=== PATIENT | female | born 1950 | race Caucasian/White ===

== ENCOUNTER 2016-11-05 11:45 | Emergency (ER) | payer MEDICARE, OTHER ==
[2016-11-05] MEDS ORDERED: MECLIZINE 12.5 MG TAB PO STA (12:20)
[2016-11-05] MEDS ORDERED: SODIUM CHLORIDE 0.9% 500 ML IV STA (12:20)
[2016-11-05] MEDS ORDERED: ONDANSETRON 4 MG/2 ML VIAL IVP STA (12:20)
[2016-11-05] MEDS ORDERED: DIAZEPAM 5 MG/ML 2 ML SYRINGE IVP STA (12:20)
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
[2016-11-05 13:06] LABS: Basophils % (A) 0 %; CH 27.5; CHCM 32.6; Eosinophils # (A) 0.3 k/uL (0-0.7); Eosinophils % (A) 4 %; HCT 35.7 % (34.0-46.0); HDW 2.61; HGB 11.6 gm/dL (11.4-16.0); Luc # (Auto) 0.13; Luc % (Auto) 2; Lymphocytes # (A) 2.7 k/uL (1.0-4.8); Lymphocytes % (A) 34 %; MCH 27.5 pg (25.0-35.0); MCHC 32.5 g/dL (31.0-37.0); MCV 84.7 fL (80.0-100.0); Mean Platelet Volume 8.9; Monocytes # (A) 0.4 k/uL (0-1.0); Monocytes % (A) 5 %; Neutrophils # (A) 4.3 k/uL (1.3-7.7); Neutrophils % (A) 55 %; RBC 4.21 m/uL (3.80-5.40); RDW 13.7 % (11.5-15.5); WBC 7.8 k/uL (3.8-10.6); WBC (Perox) 7.97
[2016-11-05 13:11] LABS: ALT 34 U/L (9-52); AST 25 U/L (14-36); Alkaline Phosphatase 75 U/L (38-126); Anion Gap 9 mmol/L; Blood Urea Nitrogen 17 mg/dL (7-17); Calcium 9.7 mg/dL (8.4-10.2); Carbon Dioxide 24 mmol/L (22-30); Chloride 108 mmol/L (98-107); Glucose 106 mg/dL (74-99); Non-African American GFR(MDRD) >60 (>60 ml/min/1.73 sqM); Potassium 4.5 mmol/L (3.5-5.1); Sodium 141 mmol/L (137-145); Total Bilirubin 0.6 mg/dL (0.2-1.3); Total Protein 6.4 g/dL (6.3-8.2)
--- NOTE | 2016-11-05 13:35 | XR ---
Cervical spine HISTORY: Neck pain 5 views of the cervical spine and 6 images correlated to prior exam 04/29/2012 No interval change is evident. There is stable height and alignment, bone mineralization of the cervi kailyn vertebral bodies. Prevertebral soft tissues and disc spaces show a similar appearance, loss of di sc height at C5-6 with associated spondylosis. Multilevel facet arthropathy is noted. Carotid artery calcifications are present. There are overlying cardiac leads. Oblique images are limited for evaluat ion of neural foramina. C7 and T1 not well seen. IMPRESSION: Degenerative disc disease. Cervical MRI likely would be of benefit. Limitations as descri bed.
[2016-11-05 13:53] LABS: Appearance,Urine Clear (Clear); Bacteria,Urine Rare /hpf; Bilirubin,Urine Negative (Negative); Glucose,Urine (UA) Negative (Negative); Ketones,Urine Negative (Negative); Leukocyte Esterase,Urine Moderate (Negative); Mucus,Urine Rare /hpf; Nitrite,Urine Positive (Negative); PH, Urine 5.5 (5.0-8.0); Particle Count 17653; Protein,Urine Negative (Negative); RBC,Urine <1 /hpf (0-5); Specific Gravity,Urine 1.003 (1.001-1.035); UA Billing (MACRO vs. MICRO) MICRO; Urobilinogen,Urine <2.0 mg/dL (<2.0); WBC,Urine 15 /hpf (0-5)
[2016-11-05 14:21] VITALS: BP 160/74; PULSE 58; RESP 18; TEMP 98.5
== END 2016-11-05 14:28 | disposition home or self-care (01) ==
LOC: EC 11:45
DX: M47.812 Spondylosis without myelopathy or radiculopathy, cervical region (principal); N39.0 Urinary tract infection, site not specified; R51 Headache; R42 Dizziness and giddiness; I25.10 Atherosclerotic heart disease of native coronary artery without angina pectoris; E11.9 Type 2 diabetes mellitus without complications; I10 Essential (primary) hypertension; Z79.82 Long term (current) use of aspirin; Z79.4 Long term (current) use of insulin; Z79.899 Other long term (current) drug therapy; Z91.048 Other nonmedicinal substance allergy status; Z88.0 Allergy status to penicillin
CPT/HCPCS: 36415; 93005; 80053; 84484; 85025; 81001; 72050; 99284; 96374; 96375; 96361 ×2; J3360; J2405

== ENCOUNTER → 2017-02-02 | Outpatient (CLI) | payer MEDICARE, OTHER ==
--- NOTE | 2017-02-02 12:07 | MR ---
MR brain without contrast HISTORY: F03.90, dementia Correlation to CT brain dated 04/09/2012 Multiplanar multisequence imaging through the brain The corpus callosum, cervical medullary junction, cerebellopontine angles are within normal limits. T here is a partially empty sella. Increased signal present along the temporal bone, petrous apex on the right is noted. There are katelyn l vascular flow voids. Cystic focus present within the inferior aspect of the medial portion of the l eft cerebellar hemisphere may represent a arachnoid cyst. This cyst measures 2 cm in diameter. Perive ntricular and subcortical confluent and scattered hyperintensities are present on inversion recovery and T2-weighted sequences bilaterally within the deep white matter. There is no hemorrhage or hydroce phalus evident. Mild cortical atrophy is likely age-related. There is no restricted diffusion. The or bits show symmetric appearance. 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 IMPRESSION: Age-related atrophy and probable chronic small vessel ischemia. Correlate for mastoiditis , petrous apicitis. Temporal bone CT may be of benefit.
== END ==
LOC: RADMRIMAIN 08:16
PROVIDERS: ATTEND Family Medicine
DX: G31.1 Senile degeneration of brain, not elsewhere classified (principal)
CPT/HCPCS: 70551

== ENCOUNTER 2017-08-22 00:56 | Observation (INO) | payer MEDICARE, OTHER ==
[2017-08-22 01:43] LABS: Basophils % (A) 0 %; Eosinophils # (A) 0.3 k/uL (0-0.7); Eosinophils % (A) 3 %; HCT 34.2 % (34.0-46.0); HGB 11.2 gm/dL (11.4-16.0); Lymphocytes # (A) 3.7 k/uL (1.0-4.8); Lymphocytes % (A) 42 %; MCH 25.7 pg (25.0-35.0); MCHC 32.7 g/dL (31.0-37.0); MCV 78.5 fL (80.0-100.0); Mean Platelet Volume 8.4; Monocytes # (A) 0.4 k/uL (0-1.0); Monocytes % (A) 5 %; Neutrophils # (A) 4.2 k/uL (1.3-7.7); Neutrophils % (A) 48 %; Platelet Count 242 k/uL (150-450); RBC 4.35 m/uL (3.80-5.40); RDW 14.5 % (11.5-15.5); WBC 8.9 k/uL (3.8-10.6)
[2017-08-22 01:52] LABS: Partial Thromboplastin Time 23.8 sec (22.0-30.0); Prothrombin Time 9.8 sec (9.0-12.0)
--- NOTE | 2017-08-22 01:52 | ED ---
General Adult HPI - General Chief complaint: Chest Pain Stated complaint: CHEST PAIN Time Seen by Provider: 08/22/17 01:35 Source: patient, RN notes reviewed Mode of arrival: wheelchair Limitations: no limitations - History of Present Illness Initial comments: Patient is a pleasant 67-year-old female presenting to the emergency Department with chest discomfort. Onset of symptoms was around 11:00. Patient has tightness in her chest. Patient took her home medications and states discomfort is now mild. No radiation of pain. Patient does have some associated dyspnea, nausea, and sweating. Patient did have similar symptoms around 6 months ago with a heart catheterization and told there was one area with 100% blockage. Patient did have a headache yesterday and today. Patient states headaches are chronic and unchanged. Patient has had previous MRI for headaches. Headache at this time secondary to her resolved with 2 Motrin. - Related Data Home Medications Medication Instructions Recorded Confirmed Insulin Aspart [NovoLOG 6 unit SQ TID-W/MEALS 06/01/14 03/01/17 (formulary)] Insulin Detemir [Levemir] 30 unit SQ HS 06/01/14 03/01/17 metFORMIN HCL 1,000 mg PO BID 06/01/14 03/01/17 amLODIPine BESYLATE/BENAZEPRIL 1 cap PO DAILY 11/05/16 03/01/17 [Lotrel 5-40 mg Capsule] Aspirin EC [Ecotrin Low Dose] 81 mg PO DAILY 03/01/17 03/01/17 Atenolol [Tenormin] 25 mg PO HS 03/01/17 03/01/17 Calcium Carbonate/Vitamin D3 1 tab PO BID 03/01/17 03/01/17 [Calcium 600-Vit D3 200 Tablet] Cyanocobalamin (Vitamin B-12) 5,000 mcg SL DAILY 03/01/17 03/01/17 [Vitamin B12] [place]-3 Fatty Acids/Fish Oil [Fish 1 cap PO DAILY 03/01/17 03/01/17 Oil 1,000 mg Softgel] Pantoprazole [Protonix] 40 mg PO HS 03/01/17 03/01/17 Sulfamethox-Tmp 800-160Mg [Bactrim 1 tab PO BID 03/01/17 03/01/17 DS 800-160 mg] Previous Rx's Medication Instructions Recorded Atorvastatin [Lipitor] 20 mg PO HS #30 tab 03/03/17 Isosorbide Mononitrate ER [Imdur] 30 mg PO DAILY #30 tab.er.24h 03/03/17 Lisinopril [Zestril] 20 mg PO DAILY #30 tab 03/03/17 Propylene Glycol/Peg 400 [Systane 1 drop BOTH EYES Q4-6H PRN #10 ml 03/03/17 Ultra 0.4-0.3% Eye Drp] Allergies Allergy/AdvReac Type Severity Reaction Status Date / Time Penicillins Allergy Rash/Hives Verified 08/22/17 01:05 adhesive AdvReac Rash/Hives Verified 08/22/17 01:05 Review of Systems ROS Statement: Those systems with pertinent positive or pertinent negative responses have been documented in the HPI. ROS Other: All systems not noted in ROS Statement are negative. Constitutional: Denies: fever Eyes: Denies: eye pain ENT: Denies: ear pain Respiratory: Denies: cough Cardiovascular: Reports: chest pain Endocrine: Reports: fatigue Gastrointestinal: Reports: nausea. Denies: abdominal pain Genitourinary: Denies: dysuria Musculoskeletal: Denies: back pain Skin: Denies: rash Neurological: Reports: headache. Denies: weakness, confusion Past Medical History Past Medical History: Coronary Artery Disease (CAD), Diabetes Mellitus, Hyperlipidemia, Hypertension, Osteoarthritis (OA) Additional Past Medical History / Comment(s): kidney stones, past episode of fast heart stated" they gave me a shot and it slowed down and i never had that problem again", back pain, takes fish oil for cholesterol.UTI'S, "FREQ BOUTS OF NAUSEA WHEN EATING-ESPECIALLY AT BREAKFAST" History of Any Multi-Drug Resistant Organisms: ESBL Date of last positivie culture/infection: 04/21/17- ESBL Klebsiella MDRO Source:: Urine Past Surgical History: Hysterectomy Additional Past Surgical History / Comment(s): cataracts, renal calculi Past Anesthesia/Blood Transfusion Reactions: No Reported Reaction Past Psychological History: No Psychological Hx Reported Smoking Status: Never smoker Past Alcohol Use History: None Reported Past Drug Use History: None Reported - Past Family History Mother Family Medical History: Diabetes Mellitus, Hypertension Additional Family Medical History / Comment(s): mom is still alive Father Family Medical History: CVA/TIA, Myocardial Infarction ([place]) Additional Family Medical History / Comment(s): when he was 76 General Exam Limitations: no limitations General appearance: alert, in no apparent distress Head exam: Present: atraumatic, normocephalic Eye exam: Present: normal appearance, PERRL, EOMI. Absent: nystagmus ENT exam: Present: normal oropharynx Neck exam: Present: normal inspection Respiratory exam: Present: normal lung sounds bilaterally. Absent: chest wall tenderness Cardiovascular Exam: Present: regular rate, normal rhythm Expanded Peripheral pulses: 2+: Radial (R), Radial (L), Dorsalis Pedis (R), Dorsalis Pedis (L) GI/Abdominal exam: Present: soft. Absent: tenderness Extremities exam: Present: normal inspection. Absent: pedal edema, calf tenderness Neurological exam: Present: alert, CN II-XII intact. Absent: motor sensory deficit Expanded Neurological exam: Present: protecting the airway Speech: Present: fluid speech Cranial nerves: EOM's Intact: Normal Sensory exam: Upper Extremity Light Touch: Normal, Lower Extremity Light Touch: Normal Motor strength exam: RUE: 5, LUE: 5, RLE: 5, LLE: 5 Eye Response: (4) open spontaneously Motor Response: (6) obeys commands Verbal Response: (5) oriented Psychiatric exam: Present: normal affect, normal mood Skin exam: Present: normal color Course Vital Signs 08/22/17 01:00 Temperature 98.8 F Pulse Rate 65 Respiratory 18 Rate Blood Pressure 212/93 O2 Sat by Pulse 98 Oximetry EKG Findings - EKG Comments: EKG Findings:: Sinus rhythm at 65. FL 198. QRS 92. QT 414. QTC 4:30. Left axis. Q wave in aVF. No acute ST change. Medical Decision Making - Medical Decision Making Patient reevaluated and resting comfortably in bed. Patient updated on results and plan. Case was discussed with practitioner Parul dwyer, who will admit for Dr. Rocha, covering for Dr. Hernandez. - Lab Data Result diagrams: 08/22/17 01:20 08/22/17 01:20 Lab Results 08/22/17 08/22/17 08/22/17 Range/Units 01:20 01:20 01:20 WBC 8.9 (3.8-10.6) k/uL RBC 4.35 (3.80-5.40) m/uL Hgb 11.2 L (11.4-16.0) gm/dL Hct 34.2 (34.0-46.0) % MCV 78.5 L (80.0-100.0) fL MCH 25.7 (25.0-35.0) pg MCHC 32.7 (31.0-37.0) g/dL RDW 14.5 (11.5-15.5) % Plt Count 242 (150-450) k/uL Neutrophils % 48 % Lymphocytes % 42 % Monocytes % 5 % Eosinophils % 3 % Basophils % 0 % Neutrophils # 4.2 (1.3-7.7) k/uL Lymphocytes # 3.7 (1.0-4.8) k/uL Monocytes # 0.4 (0-1.0) k/uL Eosinophils # 0.3 (0-0.7) k/uL Basophils # 0.0 (0-0.2) k/uL PT (9.0-12.0) sec INR (<1.2) APTT (22.0-30.0) sec Sodium 142 (137-145) mmol/L Potassium 4.7 (3.5-5.1) mmol/L Chloride 101 (98-107) mmol/L Carbon Dioxide 25 (22-30) mmol/L Anion Gap 16 mmol/L BUN 19 H (7-17) mg/dL Creatinine 0.60 (0.52-1.04) mg/dL Est GFR (CKD-EPI)AfAm >90 (>60 ml/min/1.73 sqM) Est GFR (CKD-EPI)NonAf >90 (>60 ml/min/1.73 sqM) Glucose 161 H (74-99) mg/dL Calcium 10.1 (8.4-10.2) mg/dL Magnesium 1.8 (1.6-2.3) mg/dL Total Bilirubin 0.4 (0.2-1.3) mg/dL AST 18 (14-36) U/L ALT 18 (9-52) U/L Alkaline Phosphatase 120 (38-126) U/L Total Creatine Kinase 46 (30-135) U/L CK-MB (CK-2) 0.6 (0.0-2.4) ng/mL CK-MB (CK-2) Rel Index 1.3 Troponin I <0.012 (0.000-0.034) ng/mL Total Protein 7.2 (6.3-8.2) g/dL Albumin 4.4 (3.5-5.0) g/dL 08/22/17 Range/Units 01:20 WBC (3.8-10.6) k/uL RBC (3.80-5.40) m/uL Hgb (11.4-16.0) gm/dL Hct (34.0-46.0) % MCV (80.0-100.0) fL MCH (25.0-35.0) pg MCHC (31.0-37.0) g/dL RDW (11.5-15.5) % Plt Count (150-450) k/uL Neutrophils % % Lymphocytes % % Monocytes % % Eosinophils % % Basophils % % Neutrophils # (1.3-7.7) k/uL Lymphocytes # (1.0-4.8) k/uL Monocytes # (0-1.0) k/uL Eosinophils # (0-0.7) k/uL Basophils # (0-0.2) k/uL PT 9.8 (9.0-12.0) sec INR 1.0 (<1.2) APTT 23.8 (22.0-30.0) sec Sodium (137-145) mmol/L Potassium (3.5-5.1) mmol/L Chloride (98-107) mmol/L Carbon Dioxide (22-30) mmol/L Anion Gap mmol/L BUN (7-17) mg/dL Creatinine (0.52-1.04) mg/dL Est GFR (CKD-EPI)AfAm (>60 ml/min/1.73 sqM) Est GFR (CKD-EPI)NonAf (>60 ml/min/1.73 sqM) Glucose (74-99) mg/dL Calcium (8.4-10.2) mg/dL Magnesium (1.6-2.3) mg/dL Total Bilirubin (0.2-1.3) mg/dL AST (14-36) U/L ALT (9-52) U/L Alkaline Phosphatase (38-126) U/L Total Creatine Kinase (30-135) U/L CK-MB (CK-2) (0.0-2.4) ng/mL CK-MB (CK-2) Rel Index Troponin I (0.000-0.034) ng/mL Total Protein (6.3-8.2) g/dL Albumin (3.5-5.0) g/dL - Radiology Data Radiology results: image reviewed (Chest x-ray shows no acute process) Disposition Clinical Impression: Chest pain Disposition: ADMITTED IP TO THIS [facility] Referrals: Colette Hernandez DO [Primary Care Provider] - 1-2 days Decision Time: 03:15
[2017-08-22 01:54] LABS: ALT 18 U/L (9-52); AST 18 U/L (14-36); Albumin 4.4 g/dL (3.5-5.0); Alkaline Phosphatase 120 U/L (38-126); Anion Gap 16 mmol/L; Blood Urea Nitrogen 19 mg/dL (7-17); Calcium 10.1 mg/dL (8.4-10.2); Carbon Dioxide 25 mmol/L (22-30); Chloride 101 mmol/L (98-107); Glucose 161 mg/dL (74-99); Magnesium 1.8 mg/dL (1.6-2.3); Potassium 4.7 mmol/L (3.5-5.1); Sodium 142 mmol/L (137-145); Total Bilirubin 0.4 mg/dL (0.2-1.3); Total Protein 7.2 g/dL (6.3-8.2)
--- NOTE | 2017-08-22 02:06 | XR ---
EXAMINATION TYPE: XR chest 2V DATE OF EXAM: 08/22/2017 COMPARISON: 03/01/2017 HISTORY: Chest pain TECHNIQUE: Frontal and lateral views of the chest are obtained. FINDINGS: Heart and mediastinum are within normal limits. Lungs are clear. There is no heart failure . Bony thorax is intact. IMPRESSION: No active cardiopulmonary disease. There is improved inspiration compared to old exam.
[2017-08-22 02:07] LABS: Creatine Kinase 46 U/L (30-135)
[2017-08-22 02:20] LABS: Creatine Kinase MB 0.6 ng/mL (0.0-2.4); Troponin I <0.012 ng/mL (0.000-0.034)
[2017-08-22] MEDS ORDERED: ASPIRIN 81 MG PO STA (03:15)
[2017-08-22] MEDS ORDERED: NITROGLYCERIN SL TABS 0.4 MG TAB SUBLINGUAL PRN (03:15)
[2017-08-22 04:20] VITALS: RESP 16
[2017-08-22] MEDS ORDERED: NITROGLYCERIN OINT 1 INCH/GM PACKET TOPICAL SCH (06:00)
[2017-08-22 06:48] LABS: Glucose,Whole Blood 133 mg/dL (75-99)
[2017-08-22 07:00] VITALS: BMI 34.3
[2017-08-22 08:12] LABS: Creatine Kinase 35 U/L (30-135)
[2017-08-22 08:24] LABS: Creatine Kinase MB 0.4 ng/mL (0.0-2.4); Troponin I <0.012 ng/mL (0.000-0.034)
[2017-08-22] MEDS ORDERED: amLODIPine 10 MG TAB PO SCH (10:00)
--- NOTE | 2017-08-22 10:04 | P.CRDCN ---
History of Present Illness History of present illness: 67-year-old female who presented with chest discomfort with numbness in the left arm, shortness of breath dizziness pounding in the chest and elevated blood pressures upon admission Known coronary artery disease with a chronically occluded RCA as well as left circumflex, recent coronary angiogram by Dr. Russ medical treatment recommended the possibility of opening up the chronically occluded lesion for recurrent angina Blood pressure elevated upon admission Examination normal heart sounds are normal blood pressures in normal range now she is pain-free at this time to cardiac enzymes are normal ECG does not show any ST segment abnormalities Suggest Amlodipine 10 mg by mouth daily in the morning Benazepril or lisinopril 40 mg by mouth in the evening Stagger these medications and avoid combination antihypertensive therapy for this patient stop atenolol and start carvedilol 3.15 mg twice daily Serial cardiac enzymes Ambulate in the hallways and if she continues to have exertional chest discomfort then consider intervention on the chronically occluded vessel Continue Imdur I don't see statins on her medical regimen and I will start atorvastatin 40 mrem by mouth daily See full dictation by nurse practitioner Past Medical History Past Medical History: Coronary Artery Disease (CAD), Diabetes Mellitus, Hyperlipidemia, Hypertension, Osteoarthritis (OA) Additional Past Medical History / Comment(s): kidney stones, past episode of fast heart stated" they gave me a shot and it slowed down and i never had that problem again", back pain, takes fish oil for cholesterol.UTI'S, "FREQ BOUTS OF NAUSEA WHEN EATING-ESPECIALLY AT BREAKFAST" History of Any Multi-Drug Resistant Organisms: ESBL Date of last positivie culture/infection: 04/21/17- ESBL Klebsiella MDRO Source:: Urine Past Surgical History: Hysterectomy Additional Past Surgical History / Comment(s): cataracts, renal calculi Past Anesthesia/Blood Transfusion Reactions: No Reported Reaction Past Psychological History: No Psychological Hx Reported Smoking Status: Never smoker Past Alcohol Use History: None Reported Past Drug Use History: None Reported - Past Family History Mother Family Medical History: Diabetes Mellitus, Hypertension Additional Family Medical History / Comment(s): mom is still alive Father Family Medical History: CVA/TIA, Myocardial Infarction ([place]) Additional Family Medical History / Comment(s): when he was 76 Medications and Allergies Home Medications Medication Instructions Recorded Confirmed Type Insulin Aspart [NovoLOG 6 unit SQ TID-W/MEALS 06/01/14 08/22/17 History (formulary)] Insulin Detemir [Levemir] 30 unit SQ HS 06/01/14 08/22/17 History metFORMIN HCL 1,000 mg PO BID 06/01/14 08/22/17 History amLODIPine BESYLATE/BENAZEPRIL 1 cap PO DAILY 11/05/16 08/22/17 History [Lotrel 5-40 mg Capsule] Aspirin EC [Ecotrin Low Dose] 81 mg PO DAILY 03/01/17 08/22/17 History Atenolol [Tenormin] 25 mg PO HS 03/01/17 08/22/17 History Calcium Carbonate/Vitamin D3 1 tab PO BID 03/01/17 08/22/17 History [Calcium 600-Vit D3 200 Tablet] Cyanocobalamin (Vitamin B-12) 5,000 mcg SL DAILY 03/01/17 08/22/17 History [Vitamin B12] [place]-3 Fatty Acids/Fish Oil [Fish 1 cap PO DAILY 03/01/17 08/22/17 History Oil 1,000 mg Softgel] Pantoprazole [Protonix] 40 mg PO HS 03/01/17 08/22/17 History Cinnamon Bark [Cinnamon] 500 mg PO DAILY 08/22/17 08/22/17 History Isosorbide Mononitrate ER [Imdur] 60 mg PO BID 08/22/17 08/22/17 History Allergies Allergy/AdvReac Type Severity Reaction Status Date / Time Penicillins Allergy Rash/Hives Verified 08/22/17 08:27 adhesive AdvReac Rash/Hives Verified 08/22/17 08:27 Physical Exam Vitals: Vital Signs Temp Pulse Pulse Resp BP BP Pulse Ox 08/22/17 08:00 61 16 08/22/17 07:51 98.7 F 61 16 144/55 95 08/22/17 04:00 98.0 F 58 L 16 131/65 98 08/22/17 03:10 61 17 138/68 100 08/22/17 02:08 62 18 167/78 98 08/22/17 01:00 98.8 F 65 18 212/93 98 Intake and Output 08/21/17 08/22/17 08/22/17 22:59 06:59 14:59 Other: Voiding Method Toilet Toilet # Voids 1 Weight 79.832 kg Results 08/22/17 01:20 08/22/17 01:20 Cardiac Enzymes 08/22/17 08/22/17 08/22/17 Range/Units 01:20 01:20 07:22 AST 18 (14-36) U/L CK-MB (CK-2) 0.6 0.4 (0.0-2.4) ng/mL Troponin I <0.012 <0.012 (0.000-0.034) ng/mL Coagulation 08/22/17 Range/Units 01:20 PT 9.8 (9.0-12.0) sec APTT 23.8 (22.0-30.0) sec CBC 08/22/17 Range/Units 01:20 WBC 8.9 (3.8-10.6) k/uL RBC 4.35 (3.80-5.40) m/uL Hgb 11.2 L (11.4-16.0) gm/dL Hct 34.2 (34.0-46.0) % Plt Count 242 (150-450) k/uL Comprehensive Metabolic Panel 08/22/17 Range/Units 01:20 Sodium 142 (137-145) mmol/L Potassium 4.7 (3.5-5.1) mmol/L Chloride 101 (98-107) mmol/L Carbon Dioxide 25 (22-30) mmol/L BUN 19 H (7-17) mg/dL Creatinine 0.60 (0.52-1.04) mg/dL Glucose 161 H (74-99) mg/dL Calcium 10.1 (8.4-10.2) mg/dL AST 18 (14-36) U/L ALT 18 (9-52) U/L Alkaline Phosphatase 120 (38-126) U/L Total Protein 7.2 (6.3-8.2) g/dL Albumin 4.4 (3.5-5.0) g/dL Current Medications Generic Name Dose Route Start Last Admin Trade Name Freq PRN Reason Stop Dose Admin Amlodipine Besylate 10 mg 08/22/17 10:00 Norvasc PO DAILY [facility] Atorvastatin Calcium 40 mg 08/22/17 21:00 Lipitor PO HS [facility] Carvedilol 3.125 mg 08/22/17 17:30 Coreg PO BID-W/MEALS [facility] Isosorbide Mononitrate 60 mg 08/23/17 09:00 Imdur PO DAILY [facility] Lisinopril 40 mg 08/22/17 18:00 Zestril PO DAILY [facility] Nitroglycerin 0.4 mg 08/22/17 03:15 Nitrostat SUBLINGUAL Q5M PRN Chest Pain Sodium Chloride 10 ml 08/22/17 09:00 Saline Flush IV BID TOÑO Intake and Output 08/21/17 08/22/17 08/22/17 22:59 06:59 14:59 Other: Voiding Method Toilet Toilet # Voids 1 Weight 79.832 kg 08/22/17 01:20 08/22/17 01:20
[2017-08-22] MEDS ORDERED: amLODIPine 5 MG TAB PO SCH (11:15)
[2017-08-22 12:01] LABS: Glucose,Whole Blood 229 mg/dL (75-99)
[2017-08-22] MEDS ORDERED: ACETAMINOPHEN TAB 325 MG TAB PO PRN (12:02)
[2017-08-22 13:21] LABS: Creatine Kinase 33 U/L (30-135)
[2017-08-22 13:35] LABS: Creatine Kinase MB 0.4 ng/mL (0.0-2.4); Troponin I <0.012 ng/mL (0.000-0.034)
[2017-08-22] MEDS ORDERED: BENAZEPRIL PO SCH (14:00)
[2017-08-22] MEDS ORDERED: AMLODIPINE BESYLATE PO SCH (14:00)
[2017-08-22] MEDS ORDERED: ASPIRIN 81 MG PO SCH (14:00)
--- NOTE | 2017-08-22 14:34 | P.HPIM ---
History of Present Illness This is a pleasant 67 years old female with past medical history as below presents with chest pain when day duration initiated with some dyspnea and nausea and sweating EKG shows normal sinus rhythm at [address]-T changes Intensive similar complaints about 6 months ago Which shows 1 area of ischemia by 100% blockage Review of Systems 10 point systemic review were negative except what mentioned above Past Medical History Past Medical History: Coronary Artery Disease (CAD), Diabetes Mellitus, Hyperlipidemia, Hypertension, Osteoarthritis (OA) Additional Past Medical History / Comment(s): kidney stones, past episode of fast heart stated" they gave me a shot and it slowed down and i never had that problem again", back pain, takes fish oil for cholesterol.UTI'S, "FREQ BOUTS OF NAUSEA WHEN EATING-ESPECIALLY AT BREAKFAST" History of Any Multi-Drug Resistant Organisms: ESBL Date of last positivie culture/infection: 04/21/17- ESBL Klebsiella MDRO Source:: Urine Past Surgical History: Hysterectomy Additional Past Surgical History / Comment(s): cataracts, renal calculi Past Anesthesia/Blood Transfusion Reactions: No Reported Reaction Past Psychological History: No Psychological Hx Reported Smoking Status: Never smoker Past Alcohol Use History: None Reported Past Drug Use History: None Reported - Past Family History Mother Family Medical History: Diabetes Mellitus, Hypertension Additional Family Medical History / Comment(s): mom is still alive Father Family Medical History: CVA/TIA, Myocardial Infarction ([place]) Additional Family Medical History / Comment(s): when he was 76 Medications and Allergies Home Medications Medication Instructions Recorded Confirmed Type Insulin Aspart [NovoLOG 6 unit SQ TID-W/MEALS 06/01/14 08/22/17 History (formulary)] Insulin Detemir [Levemir] 30 unit SQ HS 06/01/14 08/22/17 History metFORMIN HCL 1,000 mg PO BID 06/01/14 08/22/17 History amLODIPine BESYLATE/BENAZEPRIL 1 cap PO DAILY 11/05/16 08/22/17 History [Lotrel 5-40 mg Capsule] Aspirin EC [Ecotrin Low Dose] 81 mg PO DAILY 03/01/17 08/22/17 History Calcium Carbonate/Vitamin D3 1 tab PO BID 03/01/17 08/22/17 History [Calcium 600-Vit D3 200 Tablet] Cyanocobalamin (Vitamin B-12) 5,000 mcg SL DAILY 03/01/17 08/22/17 History [Vitamin B12] [place]-3 Fatty Acids/Fish Oil [Fish 1 cap PO DAILY 03/01/17 08/22/17 History Oil 1,000 mg Softgel] Pantoprazole [Protonix] 40 mg PO HS 03/01/17 08/22/17 History Carvedilol [Coreg] 3.125 mg PO BID-W/MEALS #60 tab 08/22/17 Rx Cinnamon Bark [Cinnamon] 500 mg PO DAILY 08/22/17 08/22/17 History Isosorbide Mononitrate ER [Imdur] 60 mg PO DAILY #0 08/22/17 08/22/17 Rx Allergies Allergy/AdvReac Type Severity Reaction Status Date / Time Penicillins Allergy Rash/Hives Verified 08/22/17 08:27 adhesive AdvReac Rash/Hives Verified 08/22/17 08:27 Physical Exam Vitals: Vital Signs Temp Pulse Pulse Resp BP BP Pulse Ox 08/22/17 12:00 65 16 08/22/17 11:45 98.1 F 65 16 166/72 97 08/22/17 08:00 61 16 08/22/17 07:51 98.7 F 61 16 144/55 95 08/22/17 04:00 98.0 F 58 L 16 131/65 98 08/22/17 03:10 61 17 138/68 100 08/22/17 02:08 62 18 167/78 98 08/22/17 01:00 98.8 F 65 18 212/93 98 Intake and Output 08/21/17 08/22/17 08/22/17 22:59 06:59 14:59 Intake Total 420 Balance 420 Intake: Oral 420 Other: Voiding Method Toilet Toilet # Voids 1 Weight 79.832 kg Constitutional: No acute distress, conversant, pleasant Eyes: Anicteric sclerae, moist conjunctiva, no lid-lag PERRLA ENMT: NC/AT Oropharynx clear, no erythema, exudates Neck: Supple, FROM, no masses, or JVD No carotid bruits No thyromegaly Lungs: Clear to auscultation Clear to percussion Normal respiratory effort, no accessory muscle use Cardiovascular: Heart regular in rate and rhythm, No murmurs, gallops, or rubs No peripheral edema Abdominal: Soft Nontender, no guarding, rebound or rigidity Abdomen moving with respiration Normoactive bowel sounds No hepatomegaly, No splenomegaly No palpable mass No abdominal wall hernia noted Skin: Normal temperature, tone, texture, turgor No induration No subcutaneous nodules No rash, lesions No ulcers Extremities: No digital cyanosis No clubbing Pedal pulses intact and symmetrical Radial pulses intact and symmetrical Normal gait and station No calf tenderness Psychiatric: Alert and oriented to person, place and time Appropriate affect Intact judgement Neuro: Muscles Strength 5/5 in all 4 extremities Sensation to light touch grossly present throughout Cranial nerves II-XII grossly intact No focal sensory deficits Results CBC & Chem 7: 08/22/17 01:20 08/22/17 01:20 Labs: Abnormal Lab Results - Last 24 Hours (Table) 08/22/17 08/22/17 08/22/17 Range/Units 01:20 01:20 06:46 Hgb 11.2 L (11.4-16.0) gm/dL MCV 78.5 L (80.0-100.0) fL BUN 19 H (7-17) mg/dL Glucose 161 H (74-99) mg/dL POC Glucose (mg/dL) 133 H (75-99) mg/dL 08/22/17 Range/Units 12:00 Hgb (11.4-16.0) gm/dL MCV (80.0-100.0) fL BUN (7-17) mg/dL Glucose (74-99) mg/dL POC Glucose (mg/dL) 229 H (75-99) mg/dL Thrombosis Risk Factor Assmnt - Choose All That Apply Each Risk Factor Represents 2 Points: Age 61-74 years Thrombosis Risk Factor Assessment Total Risk Factor Score: 2 Thrombosis Risk Factor Assessment Level: Low Risk Assessment and Plan Assessment: 1 chest pain, improved now Patients with significant past medical history of 100% blockage of one of her coronary arteries, serial cardiac enzymes were negative cardiology consultation is appreciated , i spoke with zoey from cardiology team and she confirmed to me pt can be discharged from their perspective but she will need f/u with Dr. padilla in one week , discussed with staff pt already has appointment set up for her on 09/04 , pt informed and she agrees 2. Diabetes mellitus type 2 and with metformin and insulin Lantus 3. Hypertension continue with beta nora Norvasc and ARBs
--- NOTE | 2017-08-22 14:45 | P.CRDCN ---
History of Present Illness Consult date: 08/22/17 History of present illness: Mrs. Deutsch is a pleasant 67-year-old female past medical history significant for known coronary artery disease with chronically occluded RCA, diabetes mellitus, dyslipidemia, hypertension. She follows with Dr. España in the office. We've been asked to see her in consultation for complaints of chest pain. She states yesterday when she woke up from sleep she felt a pressure in the left precordial region with radiation down into the left arm. She states that this persisted for approximately 2 hours and she was thinking it was related to the way that she had slept since she did sleep on her left side. Although after it persisted for 2 hours with no relief she began to become alarmed and decided to present to the hospital for further evaluation. She also verbalizes that she has had a headache. She denies symptoms of shortness of breath, palpitations, nausea, vomiting or diaphoresis. Upon arrival to the emergency department her blood pressure was extremely elevated. She denies any further symptoms of chest pain and seems that the symptoms subsided upon arrival with no specific alleviating factors. EKG on arrival reveals sinus mechanism with no acute ST or T wave abnormalities noted. Chest x-ray negative for an acute cardiopulmonary process. Laboratory data reviewed, hemoglobin 11.2, platelets 242, potassium 4.7, magnesium 1.8, creatinine 0.6, cardiac enzymes negative 2. Current cardiac medications include Imdur 60 mg twice a day, atenolol 25 mg daily, aspirin 81 mg daily, Lotrel 5/40 mg daily. Most recent echocardiogram performed February 2017 reveals preserved left ventricular systolic function with ejection fraction 55-60%. Most recent cardiac catheterization performed February 2017 reveals 100% occluded RCA in the midportion, mild disease of the circumflex artery, chronically total occlusion in the midportion of the circumflex into the large OM branch, the LAD. He had mild disease only. Maximum medical therapy was recommended at that time with possibility to attempt to open the RCA if symptoms persisted. Review of Systems At the time of my exam: CONSTITUTIONAL: Denies fever. Denies chills. EYES: Denies blurred vision. Denies vision changes. Denies eye pain. EARS, NOSE, MOUTH & THROAT: Denies headache. Denies sore throat. Denies ear pain. CARDIOVASCULAR: Denies chest pain. Denies shortness of breath. Denies orthopnea. Denies PND. Denies palpitations. RESPIRATORY: Denies cough. GASTROINTESTINAL: Denies abdominal pain. Denies diarrhea. Denies constipation. Denies nausea. Denies vomiting. MUSCULOSKELETAL: Denies myalgias. INTEGUMENTARY: Denies pruitis. Denies rash. NEUROLOGIC: Denies numbness. Denies tingling. Denies weakness. PSYCHIATRIC: Denies anxiety. Denies depression. ENDOCRINE: Denies fatigue. Denies weight change. Denies polydipsia. Denies polyurina. GENITOURINARY: Denies burning, hematuria or urgency with micturation. HEMATOLOGIC: Denies history of anemia. Denies bleeding. Past Medical History Past Medical History: Coronary Artery Disease (CAD), Diabetes Mellitus, Hyperlipidemia, Hypertension, Osteoarthritis (OA) Additional Past Medical History / Comment(s): kidney stones, past episode of fast heart stated" they gave me a shot and it slowed down and i never had that problem again", back pain, takes fish oil for cholesterol.UTI'S, "FREQ BOUTS OF NAUSEA WHEN EATING-ESPECIALLY AT BREAKFAST" History of Any Multi-Drug Resistant Organisms: ESBL Date of last positivie culture/infection: 04/21/17- ESBL Klebsiella MDRO Source:: Urine Past Surgical History: Hysterectomy Additional Past Surgical History / Comment(s): cataracts, renal calculi Past Anesthesia/Blood Transfusion Reactions: No Reported Reaction Past Psychological History: No Psychological Hx Reported Smoking Status: Never smoker Past Alcohol Use History: None Reported Past Drug Use History: None Reported - Past Family History Mother Family Medical History: Diabetes Mellitus, Hypertension Additional Family Medical History / Comment(s): mom is still alive Father Family Medical History: CVA/TIA, Myocardial Infarction ([place]) Additional Family Medical History / Comment(s): when he was 76 Medications and Allergies Home Medications Medication Instructions Recorded Confirmed Type Insulin Aspart [NovoLOG 6 unit SQ TID-W/MEALS 06/01/14 08/22/17 History (formulary)] Insulin Detemir [Levemir] 30 unit SQ HS 06/01/14 08/22/17 History metFORMIN HCL 1,000 mg PO BID 06/01/14 08/22/17 History amLODIPine BESYLATE/BENAZEPRIL 1 cap PO DAILY 11/05/16 08/22/17 History [Lotrel 5-40 mg Capsule] Aspirin EC [Ecotrin Low Dose] 81 mg PO DAILY 03/01/17 08/22/17 History Calcium Carbonate/Vitamin D3 1 tab PO BID 03/01/17 08/22/17 History [Calcium 600-Vit D3 200 Tablet] Cyanocobalamin (Vitamin B-12) 5,000 mcg SL DAILY 03/01/17 08/22/17 History [Vitamin B12] [place]-3 Fatty Acids/Fish Oil [Fish 1 cap PO DAILY 03/01/17 08/22/17 History Oil 1,000 mg Softgel] Pantoprazole [Protonix] 40 mg PO HS 03/01/17 08/22/17 History Carvedilol [Coreg] 3.125 mg PO BID-W/MEALS #60 tab 08/22/17 Rx Cinnamon Bark [Cinnamon] 500 mg PO DAILY 08/22/17 08/22/17 History Isosorbide Mononitrate ER [Imdur] 60 mg PO DAILY #0 08/22/17 08/22/17 Rx Allergies Allergy/AdvReac Type Severity Reaction Status Date / Time Penicillins Allergy Rash/Hives Verified 08/22/17 08:27 adhesive AdvReac Rash/Hives Verified 08/22/17 08:27 Physical Exam Vitals: Vital Signs Temp Pulse Pulse Resp BP BP Pulse Ox 08/22/17 07:51 98.7 F 61 16 144/55 95 08/22/17 04:00 98.0 F 58 L 16 131/65 98 08/22/17 03:10 61 17 138/68 100 08/22/17 02:08 62 18 167/78 98 08/22/17 01:00 98.8 F 65 18 212/93 98 Intake and Output 08/21/17 08/22/17 08/22/17 22:59 06:59 14:59 Other: Voiding Method Toilet # Voids 1 Weight 79.832 kg Blood pressure 144/50 561 afebrile maintaining oxygen saturation on room air GENERAL: This is a 67-year-old female in no apparent distress at the time of my examination. HEENT: Head is atraumatic, normocephalic. Pupils are equal, round. Sclerae anicteric. Conjunctivae are clear. Mucous membranes of the mouth are moist. Neck is supple. There is no jugular venous distention. No carotid bruit is heard. LUNGS: Clear to auscultation no wheezes, rales or rhonchi. No chest wall tenderness is noted on palpation or with deep breathing. HEART: Regular rate and rhythm without murmurs, rubs or gallops. S1 and S2 heard. ABDOMEN: Soft, nontender. Bowel sounds are heard. No organomegaly noted. EXTREMITIES: No evidence of peripheral edema and no calf tenderness noted. VASCULAR: Radial and dorsalis pedis pulses palpated, no evidence of clubbing. NEUROLOGIC: Patient is awake, alert and oriented x3. Results 08/22/17 01:20 08/22/17 01:20 Cardiac Enzymes 08/22/17 08/22/17 08/22/17 Range/Units 01:20 01:20 07:22 AST 18 (14-36) U/L CK-MB (CK-2) 0.6 0.4 (0.0-2.4) ng/mL Troponin I <0.012 <0.012 (0.000-0.034) ng/mL Coagulation 08/22/17 Range/Units 01:20 PT 9.8 (9.0-12.0) sec APTT 23.8 (22.0-30.0) sec CBC 08/22/17 Range/Units 01:20 WBC 8.9 (3.8-10.6) k/uL RBC 4.35 (3.80-5.40) m/uL Hgb 11.2 L (11.4-16.0) gm/dL Hct 34.2 (34.0-46.0) % Plt Count 242 (150-450) k/uL Comprehensive Metabolic Panel 08/22/17 Range/Units 01:20 Sodium 142 (137-145) mmol/L Potassium 4.7 (3.5-5.1) mmol/L Chloride 101 (98-107) mmol/L Carbon Dioxide 25 (22-30) mmol/L BUN 19 H (7-17) mg/dL Creatinine 0.60 (0.52-1.04) mg/dL Glucose 161 H (74-99) mg/dL Calcium 10.1 (8.4-10.2) mg/dL AST 18 (14-36) U/L ALT 18 (9-52) U/L Alkaline Phosphatase 120 (38-126) U/L Total Protein 7.2 (6.3-8.2) g/dL Albumin 4.4 (3.5-5.0) g/dL Current Medications Generic Name Dose Route Start Last Admin Trade Name Sarahi PRN Reason Stop Dose Admin Aspirin 325 mg 08/23/17 09:00 Aspirin PO DAILY TOÑO Nitroglycerin 1 inch 08/22/17 06:00 08/22/17 07:05 Nitro-Bid Oint TOPICAL Not Given Q6HR TOÑO Nitroglycerin 0.4 mg 08/22/17 03:15 Nitrostat SUBLINGUAL Q5M PRN Chest Pain Sodium Chloride 10 ml 08/22/17 09:00 Saline Flush IV BID TOÑO Intake and Output 08/21/17 08/22/17 08/22/17 22:59 06:59 14:59 Other: Voiding Method Toilet # Voids 1 Weight 79.832 kg 08/22/17 01:20 08/22/17 01:20 Assessment and Plan Assessment: ASSESSMENT 1. Chest pain, atypical. An acute coronary event has been ruled out with negative cardiac enzymes and no EKG evidence of acute ischemia. 2. History of known chronically totally occluded RCA 3. Hypertension, uncontrolled 4. Dyslipidemia 5. Diabetes mellitus PLAN Discontinue atenolol and start carvedilol 3.125 mg twice a day. Discontinue lotrel combination therapy and split these medications up between morning and evening. Start amlodipine 5 mg daily in the morning and lisinopril 40 mg in the evening. Follow-up with Dr. España in one week. Nurse Practitioner note has been reviewed, I agree with a documented findings and plan of care. Patient was seen and examined.
--- NOTE | 2017-08-22 15:28 | P.DS ---
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 españa in one week , discussed with staff pt already has appointment set up for her on 09/04 , pt informed and she agrees 2. Diabetes mellitus type 2 and with metformin and insulin Lantus 3. Hypertension continue with beta nora Norvasc and ARBs Hospital course:his is a pleasant 67 years old female with past medical history as below presents with chest pain when day duration initiated with some dyspnea which are improving as per pt she presented with central chest pain pressure like to initiated with left arm numbness and severity of 8-9/10 on admission , and now is resolved with sometimes 1-2/10, which is similar what happnened 2 months ago when she was diagnosed with coronary art blockage since then she is having this mild CP of 1-2/10 in severity on and off as per pt pt has been Evaluated and cleared by cardiology for discharge. Patient is being discharged home in stable condition with her prognosis. but she needs f/u as outpt and she agrees, pt is instructed to come back to the hospital if she is having more chest pain , dyspnea, Physical Exam:VSS, alert and oriented 3, no acute distress.CV: Regular S1- S2.LUNGS: Clear to auscultation, no rhonchi, no crackles, no wheezes.NEURO: No focal deficits. Attending taken, and 35 minutes Patient Condition at Discharge: Stable Plan - Discharge Summary New Discharge Prescriptions: New Carvedilol [Coreg] 3.125 mg PO BID-W/MEALS #60 tab amLODIPine [Norvasc] 5 mg PO DAILY #30 tab Lisinopril [Zestril] 40 mg PO DAILY@1800 #30 tab Continue Insulin Detemir [Levemir] 30 unit SQ HS metFORMIN HCL 1,000 mg PO BID Insulin Aspart [NovoLOG (formulary)] 6 unit SQ TID-W/MEALS [place]-3 Fatty Acids/Fish Oil [Fish Oil 1,000 mg Softgel] 1 cap PO DAILY Cyanocobalamin (Vitamin B-12) [Vitamin B12] 5,000 mcg SL DAILY Calcium Carbonate/Vitamin D3 [Calcium 600-Vit D3 200 Tablet] 1 tab PO BID Aspirin EC [Ecotrin Low Dose] 81 mg PO DAILY Pantoprazole [Protonix] 40 mg PO HS Cinnamon Bark [Cinnamon] 500 mg PO DAILY Changed Isosorbide Mononitrate ER [Imdur] 60 mg PO DAILY #0 Discontinued amLODIPine BESYLATE/BENAZEPRIL [Lotrel 5-40 mg Capsule] 1 cap PO DAILY Atenolol [Tenormin] 25 mg PO HS Discharge Medication List Insulin Aspart [NovoLOG (formulary)] 6 unit SQ TID-W/MEALS 06/01/14 [History] Insulin Detemir [Levemir] 30 unit SQ HS 06/01/14 [History] metFORMIN HCL 1,000 mg PO BID 06/01/14 [History] Aspirin EC [Ecotrin Low Dose] 81 mg PO DAILY 03/01/17 [History] Calcium Carbonate/Vitamin D3 [Calcium 600-Vit D3 200 Tablet] 1 tab PO BID [History] Cyanocobalamin (Vitamin B-12) [Vitamin B12] 5,000 mcg SL DAILY 03/01/17 [History ] [place]-3 Fatty Acids/Fish Oil [Fish Oil 1,000 mg Softgel] 1 cap PO DAILY [History] Pantoprazole [Protonix] 40 mg PO HS 03/01/17 [History] Carvedilol [Coreg] 3.125 mg PO BID-W/MEALS #60 tab 08/22/17 [Rx] Cinnamon Bark [Cinnamon] 500 mg PO DAILY 08/22/17 [History] Isosorbide Mononitrate ER [Imdur] 60 mg PO DAILY #0 08/22/17 [Rx] Lisinopril [Zestril] 40 mg PO DAILY@1800 #30 tab 08/22/17 [Rx] amLODIPine [Norvasc] 5 mg PO DAILY #30 tab 08/22/17 [Rx] Follow up Appointment(s)/Referral(s): Avtar España MD [STAFF PHYSICIAN] - (Appointment made for September 04 @ 3:45pm.) Colette Medrano DO [Primary Care Provider] - 3 Days (please call to make appointment with one week ) Patient Instructions/Handouts: Angina (DC), Myocardial Infarction (DC), Coronary Artery Disease (DC) Activity/Diet/Wound Care/Special Instructions: resume cardiac diet , low cholesterol, low sodium diet Discharge Disposition: HOME SELF-CARE
[2017-08-22 15:51] VITALS: TEMP 98.6
[2017-08-22] MEDS ORDERED: INSULIN ASPART 100 UNIT/ML 1 ML 10 ML VIAL SQ SCH (17:30)
[2017-08-22] MEDS ORDERED: CARVEDILOL 3.125 MG TAB PO SCH (17:30)
[2017-08-22 17:46] LABS: Glucose,Whole Blood 134 mg/dL (75-99)
[2017-08-22 17:54] VITALS: BP 133/67
[2017-08-22 18:00] VITALS: PULSE 68
[2017-08-22] MEDS ORDERED: LISINOPRIL 20 MG TAB PO SCH (18:00)
[2017-08-22] MEDS ORDERED: ISOSORBIDE MONONITRATE ER 60 MG TAB.ER.24H PO SCH (21:00)
[2017-08-22] MEDS ORDERED: metFORMIN 500 MG TAB PO SCH (21:00)
[2017-08-22] MEDS ORDERED: PANTOPRAZOLE 40 MG TABLET PO SCH (21:00)
[2017-08-22] MEDS ORDERED: ATORVASTATIN 40 MG TAB PO SCH (21:00)
[2017-08-22] MEDS ORDERED: INSULIN DETEMIR 100 UNIT/ML 10 ML VIAL SQ SCH (21:00)
[2017-08-22] MEDS ORDERED: CALCIUM CARB-VIT D 500MG-200UN 1 EACH TAB PO SCH (21:00)
[2017-08-23] MEDS ORDERED: ASPIRIN 325 MG TAB PO SCH (09:00)
[2017-08-23] MEDS ORDERED: ISOSORBIDE MONONITRATE ER 60 MG TAB.ER.24H PO SCH (09:00)
[2017-08-23] MEDS ORDERED: NON-FORMULARY DRUG (Omega-3 Fatty Acids/Fish Oil [Fish Oil 1,000 Mg Softgel] 1 CAP) PO SCH (09:00)
[2017-08-23] MEDS ORDERED: CYANOCOBALAMIN 500 MCG TAB PO SCH (12:00)
== END 2017-08-22 18:20 | disposition home or self-care (01) ==
LOC: EC 00:56 → 3OBS 03:15
PROVIDERS: ADMIT Internal Medicine; ATTEND Internal Medicine
DX: R07.89 Other chest pain (principal); I25.82 Chronic total occlusion of coronary artery; I25.10 Atherosclerotic heart disease of native coronary artery without angina pectoris; I10 Essential (primary) hypertension; E78.5 Hyperlipidemia, unspecified; E11.9 Type 2 diabetes mellitus without complications; M19.90 Unspecified osteoarthritis, unspecified site; R51 Headache; Z79.4 Long term (current) use of insulin; Z79.82 Long term (current) use of aspirin; Z79.899 Other long term (current) drug therapy; Z88.0 Allergy status to penicillin; Z91.048 Other nonmedicinal substance allergy status; Z87.442 Personal history of urinary calculi; Z16.39 Resistance to other specified antimicrobial drug; Z90.710 Acquired absence of both cervix and uterus; Z83.3 Family history of diabetes mellitus; Z82.49 Family history of ischemic heart disease and other diseases of the circulatory system; Z82.3 Family history of stroke
CPT/HCPCS: 99285 ×2; 36415; 93005; 97162; 80053; 82550; 82553; 83735; 84484; 85025; 85610; 85730; 71046; G0378

== ENCOUNTER → 2018-02-18 | Outpatient (CLI) | payer MEDICARE, OTHER ==
--- NOTE | 2018-02-18 09:46 | MR ---
EXAMINATION TYPE: MR lumbar spine wo con DATE OF EXAM: 02/18/2018 COMPARISON: 02/18/2016 HISTORY: Cervicalgia / Low back pain TECHNIQUE: T1 and T2 axial and sagittal images of the lumbar spine are submitted. FINDINGS: There is no abnormal signal seen within the visualized spinal cord or paraspinal soft tissu es. T11-T12 is only partially included on exam but there does appear to be a sagittal disc bulge or protr usion. T12-L1 there is degenerative disc disease and hypertrophic spurring with hypertrophic change of the f acets. No disc herniation or canal stenosis. No foraminal encroachment. At L1-2 there is hypertrophic change of the facets. No disc herniation or canal stenosis. No foramina l encroachment. At L2-3 there is degenerative disc disease with broad-based central disc bulging. Ligamentum flavum a nd facet arthropathy noted. There is mild effacement of thecal sac. No foraminal encroachment or disc herniation. At L3-4 there is degenerative disc disease with diffuse broad-based central disc bulging. There is mi ld compression of the thecal sac with facet arthropathy and ligamentum flavum. Borderline to mild bobby tral stenosis. Mild bilateral foraminal encroachment. At L4-5 there is diffuse disc bulging with some more advanced facet arthropathy and ligamentum flavum hypertrophy. There is bilateral lateral recess stenosis. There is mild central stenosis and moderate bilateral foraminal encroachment. At L5-S1 there is broad-based disc bulging but no canal stenosis or discrete herniation. Hypertrophic change facets. No foraminal encroachment. IMPRESSION: 1. Multilevel degenerative disc disease with multilevel disc bulging and hypertrophic changes contrib uting to multilevel borderline to mild central stenosis. 2. There is suggestion of a sagittal disc bulge or protrusion at T11-T12. Correlation with thoracic s pine MRI recommended. Finding only partially included on lumbar spine MRI. EXAMINATION TYPE: MR cervical spine wo con DATE OF EXAM: 02/18/2018 COMPARISON: NONE HISTORY: Cervicalgia / Low back pain TECHNIQUE: T1 sagittal and coronal, T2 sagittal, and gradient echo axial views of the cervical spine are submitted. FINDINGS: The cranial cervical junction is preserved. There is no abnormal signal seen within the sp inal cord or paraspinal soft tissues. Prominent cisterna magna versus small arachnoid cyst within the posterior fossa. At C2-3 there is no disc herniation or canal stenosis. No foraminal encroachment. At C3-4 there is degenerative disc disease with broad-based central left paracentral disc bulging and thecal sac effacement with no spinal cord contact. Small protrusion suspected. Hypertrophic change o f the facets and uncovertebral joints with moderate left-sided foraminal encroachment. At C4-5 there is large central disc herniation with anterior compression of the spinal cord. Degenera tive disc disease with hypertrophic changes noted and there is moderate left foraminal encroachment a nd moderate to severe right foraminal encroachment. Facet arthropathy and uncovertebral joint hypertr ophy noted. At C5-6 there is severe degenerative disc disease. There is posterior spondylosis with disc bulging c apped by spur. There is uncovertebral joint hypertrophy and facet arthropathy with moderate bilateral foraminal encroachment and borderline central stenosis. At C6-7 there is central disc bulging with degenerative disc disease. Mild uncovertebral joint hypert rophy. Neural foramina patent. No Canal stenosis. At C7-T1 there is no disc herniation or canal stenosis. No foraminal encroachment. There is multinodular thyroid with the largest nodule measuring 2.5 cm. This is seen within the right lobe of the thyroid. Results telephoned to the patient's referring clinician. IMPRESSION: 1. Multilevel moderate to severe degenerative disc disease with posterior spondylosis and disc bulgi ng. There is a large central disc herniation with anterior compression the spinal cord C4-C5. 2. Hypertrophic changes with disc bulging C5-6 with borderline central stenosis and bilateral foramin al encroachment. 3. Left paracentral disc protrusion C3-C4 with left-sided foraminal encroachment and effacement of th ecal sac. No spinal cord contact. 4. Multinodular thyroid with the largest seen involving the right lobe measuring 2.5 cm. #5 prominent CSF in the posterior fossa differential includes giant cisterna magna versus arachnoid cyst.
== END | disposition home or self-care (01) ==
LOC: RADMRIMAIN 07:31
PROVIDERS: ATTEND Nurse Practitioner Acute Care
DX: M48.061 Spinal stenosis, lumbar region without neurogenic claudication (principal); M48.02 Spinal stenosis, cervical region; M51.26 Other intervertebral disc displacement, lumbar region; M50.21 Other cervical disc displacement, high cervical region; M51.36 Other intervertebral disc degeneration, lumbar region; M51.35 Other intervertebral disc degeneration, thoracolumbar region; M50.31 Other cervical disc degeneration, high cervical region; M47.812 Spondylosis without myelopathy or radiculopathy, cervical region; Z88.0 Allergy status to penicillin
CPT/HCPCS: 72141; 72148

== ENCOUNTER → 2018-10-30 | Outpatient (CLI) | payer MEDICARE, OTHER ==
[2018-10-30 17:16] LABS: INR 0.9 (<1.2); Partial Thromboplastin Time 23.8 sec (22.0-30.0); Prothrombin Time 9.9 sec (9.0-12.0)
== END | disposition home or self-care (01) ==
LOC: LABPAT 15:31
PROVIDERS: ATTEND Orthopaedic Surgery
DX: R07.9 Chest pain, unspecified (principal); Z01.812 Encounter for preprocedural laboratory examination
CPT/HCPCS: 85610; 85730; 87070

== ENCOUNTER → 2018-11-04 | Outpatient (CLI) | payer MEDICARE, OTHER ==
[2018-11-04 13:47] LABS: Anisocytosis Slight; Basophils % (A) 0 %; Eosinophils # (A) 0.2 k/uL (0-0.7); Eosinophils % (A) 3 %; HCT 31.9 % (34.0-46.0); HGB 9.7 gm/dL (11.4-16.0); Hypochromasia Slight; Lymphocytes # (A) 2.3 k/uL (1.0-4.8); Lymphocytes % (A) 37 %; MCHC 30.6 g/dL (31.0-37.0); MCV 78.6 fL (80.0-100.0); Mean Platelet Volume 7.8; Microcytosis Slight; Monocytes # (A) 0.3 k/uL (0-1.0); Monocytes % (A) 5 %; Neutrophils # (A) 3.4 k/uL (1.3-7.7); Neutrophils % (A) 54 %; Platelet Count 265 k/uL (150-450); RBC 4.05 m/uL (3.80-5.40); RDW 16.4 % (11.5-15.5); WBC 6.3 k/uL (3.8-10.6)
== END | disposition home or self-care (01) ==
LOC: LABWHC1 12:05
PROVIDERS: ATTEND Physician Assistant
DX: M25.561 Pain in right knee (principal); M17.11 Unilateral primary osteoarthritis, right knee; I10 Essential (primary) hypertension; E78.5 Hyperlipidemia, unspecified; E10.9 Type 1 diabetes mellitus without complications; Z68.28 Body mass index [BMI] 28.0-28.9, adult; M17.12 Unilateral primary osteoarthritis, left knee; M25.562 Pain in left knee
CPT/HCPCS: 36415; 85025

== ENCOUNTER → 2019-11-21 | Outpatient (CLI) | payer MEDICARE, OTHER ==
--- NOTE | 2019-11-21 11:30 | MR ---
EXAMINATION TYPE: MR cervical spine wo con DATE OF EXAM: 11/21/2019 COMPARISON: Prior MR cervical spine 02/18/2018 HISTORY: Neck/head pain, bilateral upper extremity radiculopathy TECHNIQUE: Multiplanar, multisequence images of the cervical spine were acquired. C2-C3: No evidence for degenerative disc disease. No disc bulge/herniation or protrusion. No Canal stenosis. Foramina are patent bilaterally. There is facet arthropathy causing only mild left-sided f oraminal encroachment. C3-C4: Uncovertebral joint hypertrophy, facet arthropathy results in left-sided foraminal encroachmen t, there is a posterior disc bulge which is eccentric towards the left, endplate disc complex causes anterolateral mass effect on the thecal sac, no significant spinal stenosis. C4-C5: There is a posterior central disc herniation likely contacting the anterior cervical cord some deformity of the anterior cord is again noted. Foraminal encroachment is greater on the right due to uncovertebral joint hypertrophy and facet arthropathy and on the left. Difficult to exclude some foc al stable cord signal change at this level however this is seen only in the axial image #3, not corre lated on sagittal imaging. C5-C6: Left-sided foraminal protrusion is present greater than right. Posterior broad-based disc bulg e causes mild anterior mass effect on the thecal sac. No significant spinal stenosis. C6-C7: Posterior disc bulge causes anterior mass effect thecal sac. There is some mild foraminal encr oachment right. C7-T1: No evidence for degenerative disc disease. No disc bulge/herniation or protrusion. No Canal stenosis. Foramina are patent bilaterally. Cervical segments are intact. There is normal alignment. . Craniovertebral junction relationships a re within normal limits. There is spondylosis with loss of disc height, endplate discogenic marrow s ignal change greatest at C4-5, C5-6. T2 intense right-sided thyroid nodules again noted and shows het erogeneous signal, 2 distinct T2 intense foci present. IMPRESSION: Essentially stable degenerative disc disease, multilevel foraminal encroachment. Disc herniation seen by causes deformity cervical cord as described.
== END | disposition home or self-care (01) ==
LOC: RADMRIMAIN 09:41
PROVIDERS: ATTEND Family Medicine
DX: M50.31 Other cervical disc degeneration, high cervical region (principal); M48.02 Spinal stenosis, cervical region; M47.892 Other spondylosis, cervical region
CPT/HCPCS: 72141

== ENCOUNTER → 2021-01-31 | Outpatient (CLI) | payer MEDICARE, OTHER ==
[2021-01-31 14:24] LABS: Appearance,Urine Clear (Clear); Bacteria,Urine Occasional /hpf; Bilirubin,Urine Negative (Negative); Blood,Urine Negative (Negative); Color,Urine Light Yellow; Glucose,Urine (UA) Negative (Negative); Ketones,Urine Negative (Negative); Leukocyte Esterase,Urine Large (Negative); Nitrite,Urine Positive (Negative); PH, Urine 7.5 (5.0-8.0); Protein,Urine Negative (Negative); RBC,Urine 1 /hpf (0-5); Specific Gravity,Urine 1.009 (1.001-1.035); Urobilinogen,Urine <2.0 mg/dL (<2.0); WBC,Urine 13 /hpf (0-5)
[2021-01-31 21:54] LABS: Chol/HDL Ratio 2.24; LDL Cholesterol,Calculated 58.6 mg/dL (0.0-131.0); VLDL Calculation 19.4 mg/dL (5.00-40.00)
[2021-01-31 22:03] LABS: T4, Free (Free Thyroxine) 1.5 ng/dL (0.80-1.80)
[2021-01-31 22:17] LABS: Hemoglobin A1C 7.9 % (4.0-6.0)
[2021-02-02 19:20] LABS: Urine Creatinine 25.7 mg/dL
== END | disposition home or self-care (01) ==
LOC: LABWHC1 10:48
PROVIDERS: ATTEND Internal Medicine
DX: E11.9 Type 2 diabetes mellitus without complications (principal); E55.9 Vitamin D deficiency, unspecified; E04.9 Nontoxic goiter, unspecified
CPT/HCPCS: 36415; 80061; 81001; 82043; 82306; 82570; 83036; 84439; 84443; 86376; 87086

== ENCOUNTER 2021-10-04 10:39 | Day surgery (SDC) | payer MEDICARE, OTHER ==
[2021-09-30 13:32] VITALS: BMI 27.4
[~2021-10-04 10:39] MED LIST: ACETAMINOPHEN TAB 500 MG TAB PO PRN; DEXAMETHASONE SOD PHOSPHATE 4 MG/ML 1 ML VIAL IV ONE; GABAPENTIN 300 MG CAP PO PRN; LIDOCAINE 1% (10MG/ML) FOR IV START INTRADERMA PRN; MELOXICAM 7.5 MG TAB PO PRN; MIDAZOLAM 2 MG/2 ML VIAL IV PRN; ONDANSETRON 4 MG/2 ML VIAL IVP ONE; TRANEXAMIC ACID IN NACL,ISO-OS 1,000 MG in SALINE 1 100ML.BAG IVPB PRN
[2021-10-04] MEDS ORDERED: NALOXONE 0.4 MG/ML 1 ML VIAL IV PRN (10:59)
[2021-10-04] MEDS ORDERED: NA PHOS,M-B/NA PHOS,DI-BA 133 ML ENEMA RECTAL PRN (10:59)
[2021-10-04] MEDS ORDERED: HYDROmorphone 0.5 MG/0.5 ML SYRINGE IVP PRN ×3 (10:59)
[2021-10-04] MEDS ORDERED: MAGNESIUM HYDROXIDE 2,400 MG/10 ML CUP PO PRN (10:59)
[2021-10-04] MEDS ORDERED: ONDANSETRON 4 MG/2 ML VIAL IVP PRN (10:59)
[2021-10-04] MEDS ORDERED: bisacodyL 10 MG SUPP RECTAL PRN (10:59)
[2021-10-04] MEDS ORDERED: HYDROcodone/APAP 7.5-325MG 1 EACH TAB PO PRN (11:01)
[2021-10-04] MEDS: LACTATED RINGERS 1,000 ML IV SCH (11:09)
[2021-10-04 11:41] LABS: Glucose,Whole Blood 132 mg/dL (75-99)
[2021-10-04] MEDS ORDERED: MIDAZOLAM 2 MG/2 ML VIAL IVP ONE ×2 (11:48→11:52)
[2021-10-04] MEDS ORDERED: fentaNYL (PF) 50 MCG/ML 2 ML AMP IVP ONE ×2 (11:48→11:52)
--- NOTE | 2021-10-04 12:19 | P.ANPRN ---
Procedure Note - Anesthesia - Nerve Block Performed Right Adductor Canal Infusion Time Out Performed: Yes Date of Procedure: 10/04/21 Procedure Start Time: 11:50 Procedure Stop Time: 12:04 Location of Patient: PreOp Indication: Acute Post-Operative Pain, Requested by Surgeon Specifically requested for management of pain by : Elliott Arnold Sedation Type: Sedate with meaningful contact maintained Preparation: Sterile Prep, Sterile Dressing Position: Supine Catheter: Indwelling Needle Types: Pajunk Needle Gauge: 18 Ultrasound used to visualize needle placement: Yes Ultrasound used to observe medication spread: Yes Injectate: 0.5% Ropivacaine (see comment for volume) (15 ml +15 ml NS) Blood Aspirated: No Pain Paresthesia on Injection Noted: No Resistance on Injection: Normal Image Stored and Saved: Yes Events: Uneventful and Well Tolerated
--- NOTE | 2021-10-04 12:20 | P.ANPRN ---
Procedure Note - Anesthesia - Nerve Block Performed Right iPack Single Time Out Performed: Yes Date of Procedure: 10/04/21 Procedure Start Time: 12:06 Procedure Stop Time: 12:12 Location of Patient: PreOp Indication: Requested by Surgeon (elizabeth chowdhury) Specifically requested for management of pain by Dr.: Elliott Arnold Sedation Type: Sedate with meaningful contact maintained Preparation: Sterile Prep Position: Left Lateral Needle Types: Pajunk Needle Gauge: 21 Ultrasound used to visualize needle placement: Yes Ultrasound used to observe medication spread: Yes Injectate: 0.5% Ropivacaine (see comment for volume) (15 ml +15 ml NS) Blood Aspirated: No Pain Paresthesia on Injection Noted: No Resistance on Injection: Normal Image Stored and Saved: Yes Events: Uneventful and Well Tolerated
[2021-10-04] MEDS ORDERED: ROPIVACAINE 0.2%-NS ON-Q PUMP 1,090 MG, EMPTY PAIN BALL 1 EACH MISCELLANE PRN (12:41)
[2021-10-04] MEDS ORDERED: ROPIVACAINE 5 MG/ML 30 ML VIAL ONE (12:50)
[2021-10-04] MEDS ORDERED: PROPOFOL 10 MG/ML 20 ML VIAL IV ONE (12:50)
[2021-10-04] MEDS ORDERED: ePHEDrine 50 MG/ML 1 ML VIAL ONE (12:50)
[2021-10-04] MEDS ORDERED: SODIUM CHLORIDE 0.9% (PF) 10 ML VIAL ONE (12:50)
[2021-10-04] MEDS ORDERED: TRANEXAMIC ACID IN NACL,ISO-OS 1,000 MG/100 ML BAG ONE (12:50)
[2021-10-04] MEDS ORDERED: ceFAZolin 1,000 MG in SODIUM CHLORIDE 0.9% 1,000 ML IRRIGATION ONE (13:20)
[2021-10-04] MEDS ORDERED: LACTATED RINGERS 1,000 ML IV ONE (14:08)
--- NOTE | 2021-10-04 14:27 | P.OP ---
Date of Procedure: 10/04/21 Preoperative Diagnosis: Severe osteoarthritis right knee Postoperative Diagnosis: Severe osteoarthritis right knee Procedure(s) Performed: Right total knee arthroplasty Implants: [employer] Journey II CR Oxinium cruciate retaining femoral component size 5, right [employer] Journey nonporous tibial baseplate size 4, right [employer] Journey II, XLPE CR articular insert, size11 mm, Size 3-4, right [employer] Journey Ailyn II resurfacing patellar component, oval, 29 mm All components were cemented using Palacos R bone cement The articulation is Oxinium on polyethylene Anesthesia: spinal Surgeon: Elliott Arnold Pastoral Assistant #1: Brianne Nguyen Estimated Blood Loss (ml): 25 Pathology: other (Bone and cartilage) Condition: stable Disposition: PACU Indications for Procedure: After failure of conservative treatment we discussed the surgical and nonsurgical treatment options at length. Patient wishes to proceed with a total knee arthroplasty. Complications specific to this procedure were discussed at length, including but not limited to infection, bleeding, stiffness, and nerve injury. Covid-19 was also discussed at length with the patient, and they are aware of the current policies and procedures. The patient was given the option of delaying surgery, but they elect to proceed knowing these risks. Patient is aware of all these complications and informed consent was obtained Operative Findings: The operative findings are consistent with severe osteoarthritis of the right knee Description of Procedure: Patient was seen in the preoperative area and the consent was reviewed and the operative site was marked with a skin marker. The patient verified the procedure and the operative site. An adductor canal pain catheter and an iPACK block was placed by anesthesia in the preoperative area. The patient was then brought to the operating room and given preoperative antibiotics intravenously. A gram of transexamic acid was given intravenously. A spinal anesthetic was administered by the anesthesia department. A tourniquet was placed on the upper thigh and the lower extremity was prepped with chlorhexidine and draped in usual sterile fashion. A universal timeout was then performed which confirmed the patient's name, surgical site, ALLERGIES, and consent. The lower extremity was then exsanguinated and tourniquet was inflated to 250 mmHg. A standard anterior midline approach to the knee was performed. The skin and subcutaneous tissue were sharply dissected down to the patellar tendon. A medial parapatellar arthrotomy was then performed. The knee was then extended, the patellar was everted, and the knee was again flexed. The infra-patellar fat pad was removed in order to enhance exposure. The anterior horns of both menisci were excised, and a release was performed to the posterior medial aspect of the knee. On gross visual inspection, there was complete loss of articular cartilage in the medial and patellofemoral joint spaces. There was also significant cartilage damage in the lateral compartment. There were multiple periarticular osteophytes globally about the knee which were then removed with a Ronguer. The femoral canal was then opened with the 9.5 mm intramedullary drill. The 8 mm intramedullary faith was then inserted into the femoral canal with the distal femoral cutting guide set for 5 of valgus. The distal femoral cutting block was then pinned in place. The intramedullary faith was then removed, and the distal femur was then cut. The cutting block was then removed and the cut was checked for symmetry. The resected bone was then measured to confirm the appropriate distal femoral resection. Next, the sizing guide was then placed and set for 3 external rotation based off of the epicondylar axis and Whitesides line. Pins were then placed and the drill holes, and the femur was sized with the sizing stylus. The pins were then removed, and the sizing guide was then removed. The spikes of the femoral block was then placed into the predrilled holes, and malleted into place. Two 45 mm pins were then placed into the fixation holes on the cutting block. An maximiliano wing was then used to ensure there would be no notching with the anterior cut. The anterior condyles were cut without notching. The anterior chord cut was then performed, followed by the posterior cut, posterior chamfer cut, and the anterior chamfer cut. The collateral ligaments were protected during the entire process. The cutting block was then removed. Any remaining bone and osteophytes were removed from the femur with a Ronguer. The femoral canal was plugged with autologous bone. Attention was then directed to the tibia. The remaining ACL was removed with a Ronguer, and the tibia was then gently subluxed forward with a large bent knee retractor. Any remaining menisci were excised. The posterior lateral corner was cauterized in order to coagulate the lateral geniculate artery. The extra medullary tibial cutting guide was then placed, set for the appropriate rotation, slope, and depth of resection. The proximal tibia cutting guide was then pinned in place. Proximal tibia was then cut and sized. The femoral trial was placed. A narrow saw blade was then used to remove the anterior intracondylar femoral bone. The CR notch trial was then placed. The tibial trial was placed with the appropriate-sized insert. The knee was able to fully extend and flex to 130 and was stable throughout all range of motion. The knee was then extended and the patella was everted. Patella was then measured, and then using an osteotomy guide, the patella was cut at the appropriate level. The patella was then measured and drilled and the patella trial was then placed. The knee was then taken through range of motion with the patella trial and the patella tracked normally using the no thumbs technique. The knee was then extended patella trial was then removed and the patella was everted. Knee was then flexed and lug holes were drilled through the femoral trial and the femoral trial was then removed. The tibial was then re-exposed, and the tibial broach guide was then pinned in place after it was set for the appropriate rotation to allow for the most coverage without overhang. The tibia was then reamed and broached. The cut surfaces of bone were then irrigated with pulsatile lavage. The knee was also irrigated with Irrisept solution. The components were then opened, the cement was mixed, and the components were then cemented in place. The cement was allowed to harden with the knee in full extension. After the cemented hardened, the tourniquet was released and hemostasis was obtained. A second gram of transexamic acid was given intravenously. The knee was again irrigated. The knee was again taken through range of motion and found to be stable throughout all range of motion of 0-130, and the patella tracked normally. The fascia was then closed with 0 Vicryl followed by #2 strata fix suture. The subcutaneous tissue was closed with 3-0 Vicryl and 3-0 strata fix. Exofin glue was used for the skin and placed with the knee in flexion. After the glue had dried, and Optafoam silver impregnated dressing was applied. The patient was then transferred to recovery room in stable condition. The real estate executive assistant SHYLA Parisi was required due the complexity surgery and the need for a skilled nursing surgical services director. She assisted in positioning, draping, retraction, and closure of the wound.
[2021-10-04] MEDS: HYDROmorphone 0.5 MG/0.5 ML SYRINGE IVP PRN ×2 (14:45→15:15)
--- NOTE | 2021-10-04 15:15 | XR ---
EXAMINATION TYPE: XR knee limited RT DATE OF EXAM: 10/04/2021 COMPARISON: 01/31/2010 HISTORY: 71-year-old female evaluation for postoperative abnormality and alignment TECHNIQUE: 2 views FINDINGS: Images show placement of right total knee arthroplasty. Both distal femoral and proximal tibial compo nents of the prosthesis are well seated without periprosthetic fracture. Alignment grossly anatomic. Anterior soft tissue swelling with scattered soft tissue air as well as intra-articular air related t o recent operation. Vascular calcifications noted. IMPRESSION: Uncomplicated postoperative appearance right total knee arthroplasty.
[2021-10-04 16:02] LABS: Glucose,Whole Blood 129 mg/dL (75-99)
[2021-10-04 16:30] LABS: Glucose,Whole Blood 139 mg/dL (75-99)
--- NOTE | 2021-10-04 17:03 | P.CONS ---
History of Present Illness - Reason for Consult Consult date: 10/04/21 Medical management - History of Present Illness This is a 71-year-old female who was admitted to the hospital for surgical intervention. She failed conservative treatment for knee pain. She underwent knee replacement.Right total knee arthroplasty. At the time of examination she feels fine, minimal pain. She denies chest pain, no abdominal pain, no nausea or vomiting. Since family at bedside. She is satting okay with acceptable blood pressure Review of Systems 10 systems reviewed, pertinent positive and negative findings as in HPI. No chest pain no abdominal pain. Past Medical History Past Medical History: Coronary Artery Disease (CAD), Chest Pain / Angina, Diabetes Mellitus, GERD/Reflux, Hyperlipidemia, Hypertension, Osteoarthritis (OA), Supraventricular Tachycardia (SVT), Thyroid Disorder Additional Past Medical History / Comment(s): UTI'S, pinched nerve in neck, SOB, Hashimotos, "bad knees." History of Any Multi-Drug Resistant Organisms: ESBL Year Discovered:: 04/21/17- ESBL Klebsiella MDRO Source:: Urine Past Surgical History: Heart Catheterization, Hysterectomy Additional Past Surgical History / Comment(s): Bilateral cataracts. Past Anesthesia/Blood Transfusion Reactions: Motion Sickness Past Psychological History: Anxiety Smoking Status: Never smoker Past Alcohol Use History: None Reported Past Drug Use History: None Reported - Past Family History Mother Family Medical History: Diabetes Mellitus, Hypertension Additional Family Medical History / Comment(s): mom is still alive Father Family Medical History: CVA/TIA, Myocardial Infarction (SC) Additional Family Medical History / Comment(s): when he was 76. Medications and Allergies Home Medications Medication Instructions Recorded Confirmed Type INSULIN ASPART (NovoLOG) [NovoLOG 6 unit SQ TID-W/MEALS PRN 06/01/14 09/30/21 History (formulary)] Insulin Detemir (Levemir) [Levemir] 30 unit SQ HS 06/01/14 09/30/21 History Aspirin EC [Ecotrin Low Dose] 81 mg PO DAILY 03/01/17 10/04/21 History Calcium Carbonate/Vitamin D3 1 tab PO BID 03/01/17 09/30/21 History [Calcium 600-Vit D3 5 Mcg (200 Iu)] [place]-3 Fatty Acids/Fish Oil [Fish 1 cap PO DAILY 03/01/17 09/30/21 History Oil 1,000 mg Softgel] Isosorbide Mononitrate ER [Imdur] 60 mg PO DIRECTED 10/31/18 09/30/21 History amLODIPine [Norvasc] 10 mg PO DAILY 10/31/18 09/30/21 History lisinopriL [Zestril] 40 mg PO DAILY 10/31/18 09/30/21 History Atenolol [Tenormin] 50 mg PO DAILY 09/23/21 09/30/21 History Famotidine 40 mg PO HS 09/23/21 09/30/21 History Ferrous Sulfate [Iron (65 MG 325 mg PO TID 09/23/21 09/30/21 History Elemental)] Aspirin 325 mg PO BID #60 tab 10/04/21 Rx HYDROcodone/APAP 7.5-325MG [[place] 1 - 2 tab PO Q6H PRN #32 tab 10/04/21 Rx 7.5-325] Ondansetron Odt [Zofran Odt] 1 tab PO Q8HR PRN #10 tab 10/04/21 Rx Sennosides [Senokot] 2 tab PO DAILY PRN #60 tablet 10/04/21 Rx Allergies Allergy/AdvReac Type Severity Reaction Status Date / Time Latex, Natural Rubber Allergy Rash/Hives Verified 10/04/21 11:23 Penicillins Allergy RASH , Verified 10/04/21 11:23 ITCHING adhesive AdvReac Rash/Hives Verified 10/04/21 11:23 Physical Exam Vitals: Vital Signs Temp Pulse Pulse Resp BP BP Pulse Ox 10/04/21 16:34 97.5 F L 57 L 20 128/63 99 10/04/21 16:01 60 17 128/63 96 10/04/21 15:40 57 L 16 126/60 95 10/04/21 15:25 56 L 16 128/57 97 10/04/21 15:10 96 16 128/57 96 10/04/21 14:55 60 16 131/65 97 10/04/21 14:40 55 L 16 132/69 97 10/04/21 14:27 97.6 F 56 L 14 128/57 98 10/04/21 12:43 49 L 16 112/58 97 10/04/21 11:28 96.4 F L 58 L 16 144/65 99 Intake and Output 10/04/21 10/04/21 10/04/21 06:59 14:59 22:59 Intake Total 1151 100 Output Total 25 Balance 1126 100 Intake: IV 1151 100 Output: Estimated Blood Loss 25 Other: Weight 73.4 kg Constitutional: No acute distress, conversant, pleasant Eyes: Anicteric sclerae, moist conjunctiva, no lid-lag, PERRLA ENMT: NC/AT,Oropharynx clear, no erythema, exudates Neck:Supple, FROM, no masses, or JVD, No carotid bruits; No thyromegaly Lungs: Clear to auscultation, Clear to percussion, Normal respiratory effort, no accessory muscle use Cardiovascular: Heart regular in rate and rhythm, No murmurs, gallops, or rubs no peripheral edema Abdominal: Soft Nontender, non distended, no guarding, no rebound or rigidity, Normoactive bowel sounds No hepatomegaly, No splenomegaly, No palpable mass No abdominal wall hernia noted Skin: Normal temperature, tone, texture, turgor, No induration No subcutaneous nodules, No rash, lesions, No ulcers Extremities:No digital cyanosis No clubbing, right knee postop, wrapped. Psychiatric: Alert and oriented to person, place and time, Appropriate affect Intact judgement Neuro: Muscles Strength 5/5 in all 4 extremities, Sensation to light touch grossly present throughout, Cranial nerves II-XII grossly intact. No focal sensory deficits Results Labs: Abnormal Lab Results - Last 24 Hours (Table) 10/04/21 10/04/21 10/04/21 Range/Units 11:37 16:00 16:29 POC Glucose (mg/dL) 132 H 129 H 139 H (75-99) mg/dL Assessment and Plan Plan: 1. Right knee pain with severe osteoarthritis: Status post right total knee arthroplasty, pain control as indicated. Orthopedics following. 2. Essential hypertension: Pretty controlled, continue outpatient medications. 3. hyperlipidemia: Continue statin 4. Diabetes type 1 without competitions: Place on sliding scale. Thank you for the consultation: We will follow with you.
[2021-10-04] MEDS: SODIUM CHLORIDE 0.9% 1,000 ML IV SCH (17:04)
[2021-10-04] MEDS: INSULIN ASPART (NovoLOG) 100 UNIT/ML VIAL SQ SCH ×2 (18:19→20:33)
[2021-10-04 19:45] LABS: Glucose,Whole Blood 335 mg/dL (75-99)
[2021-10-04] MEDS: ISOSORBIDE MONONITRATE ER 60 MG TAB.ER.24H PO SCH (20:35)
[2021-10-04] MEDS: ASPIRIN 325 MG TAB PO SCH (20:35)
[2021-10-04] MEDS ORDERED: INSULIN DETEMIR (LEVEMIR) 100 UNIT/ML SYR SQ SCH (21:00)
[2021-10-04] MEDS ORDERED: SENNOSIDES-DOCUSATE SODIUM 1 EACH TAB PO SCH (21:00)
[2021-10-04] MEDS ORDERED: FAMOTIDINE 20 MG TAB PO SCH (21:00)
[2021-10-04 21:53] VITALS: RESP 16
[2021-10-04 22:01] LABS: Glucose,Whole Blood 220 mg/dL (75-99)
[2021-10-05] MEDS: HYDROcodone/APAP 7.5-325MG 1 EACH TAB PO PRN ×2 (04:51→10:45)
[2021-10-05] MEDS: SODIUM CHLORIDE 0.9% 1,000 ML IV SCH (04:52)
[2021-10-05] MEDS: LACTATED RINGERS 1,000 ML IV SCH (06:39)
[2021-10-05 06:56] LABS: Glucose,Whole Blood 102 mg/dL (75-99)
--- NOTE | 2021-10-05 06:58 | P.PN ---
Progress Note - Text Progress Note Date: 10/05/21 Postoperative day # 1 status post total knee arthroplasty, and adductor canal catheter placed for postoperative analgesia, currently at ropivacaine 0.2% 8 mL per hour and continuous infusion, visual analogue scale is 3/10, patient using oral pain medication for breakthrough pain. Assessment and plan= Acute postoperative pain, adductor canal catheter for pain control, pain is well controlled we'll continue the same management.
[2021-10-05] MEDS: INSULIN ASPART (NovoLOG) 100 UNIT/ML VIAL SQ SCH ×2 (07:11→12:10)
[2021-10-05 07:30] VITALS: BP 121/60; PULSE 56; TEMP 97.7
--- NOTE | 2021-10-05 07:40 | P.DS ---
Providers Expected date of discharge: 10/05/21 Attending physician: Elliott Arnold Consults: 10/04/21 10:59 Consult Physician Routine Consulting Provider: Bere Velazco Consult Reason/Comments: medical management Do you want consulting provider notified?: Yes Primary care physician: Jamar Sotelo, DO - Discharge Diagnosis(es) (1) Primary localized osteoarthritis of right knee Current Visit: Yes Status: Acute (2) Status post total right knee replacement Current Visit: Yes Status: Acute Hospital Course: This is a 71-year-old female who was last seen with complaint of continued right knee pain. The patient has a known history of degenerative arthritis of the right knee and presents to discuss surgical options. After discussion and consideration the patient elects to proceed with total right knee arthroplasty. The patient is seen preoperatively by her primary care physician and cleared for surgery. The patient is admitted to [facility] for total right knee arthroplasty. The procedures performed without complication or sequelae. P atient is doing well postoperatively. Vital signs are stable at discharge. Labs are stable at discharge. the patient is ambulating well with walker with minimal assistance. The patient is discharged to home on postop day #1 pending medical clearance. Please see orders and refer to the med rec for accurate list of medications. Patient Condition at Discharge: Good Plan - Discharge Summary Discharge Rx Participant: No New Discharge Prescriptions: New Aspirin 325 mg PO BID #60 tab HYDROcodone/APAP 7.5-325MG [[place] 7.5-325] 1 - 2 tab PO Q6H PRN #32 tab PRN Reason: Pain Ondansetron Odt [Zofran Odt] 1 tab PO Q8HR PRN #10 tab PRN Reason: Nausea Sennosides [Senokot] 2 tab PO DAILY PRN #60 tablet PRN Reason: Constipation No Action Insulin Detemir (Levemir) [Levemir] 30 unit SQ HS INSULIN ASPART (NovoLOG) [NovoLOG (formulary)] 6 unit SQ TID-W/MEALS PRN PRN Reason: Blood Sugar - High [place]-3 Fatty Acids/Fish Oil [Fish Oil 1,000 mg Softgel] 1 cap PO DAILY Calcium Carbonate/Vitamin D3 [Calcium 600-Vit D3 5 Mcg (200 Iu)] 1 tab PO BID Aspirin EC [Ecotrin Low Dose] 81 mg PO DAILY lisinopriL [Zestril] 40 mg PO DAILY amLODIPine [Norvasc] 10 mg PO DAILY Isosorbide Mononitrate ER [Imdur] 60 mg PO DIRECTED Famotidine 40 mg PO HS Ferrous Sulfate [Iron (65 MG Elemental)] 325 mg PO TID Atenolol [Tenormin] 50 mg PO DAILY Discharge Medication List INSULIN ASPART (NovoLOG) [NovoLOG (formulary)] 6 unit SQ TID-W/MEALS PRN 06/01/14 [History] Insulin Detemir (Levemir) [Levemir] 30 unit SQ HS 06/01/14 [History] Aspirin EC [Ecotrin Low Dose] 81 mg PO DAILY 03/01/17 [History] Calcium Carbonate/Vitamin D3 [Calcium 600-Vit D3 5 Mcg (200 Iu)] 1 tab PO BID 03/01/17 [History] [place]-3 Fatty Acids/Fish Oil [Fish Oil 1,000 mg Softgel] 1 cap PO DAILY 03/01/17 [History] Isosorbide Mononitrate ER [Imdur] 60 mg PO DIRECTED 10/31/18 [History] amLODIPine [Norvasc] 10 mg PO DAILY 10/31/18 [History] lisinopriL [Zestril] 40 mg PO DAILY 10/31/18 [History] Atenolol [Tenormin] 50 mg PO DAILY 09/23/21 [History] Famotidine 40 mg PO HS 09/23/21 [History] Ferrous Sulfate [Iron (65 MG Elemental)] 325 mg PO TID 09/23/21 [History] Aspirin 325 mg PO BID #60 tab 10/04/21 [Rx] HYDROcodone/APAP 7.5-325MG [[place] 7.5-325] 1 - 2 tab PO Q6H PRN #32 tab 10/04/21 [Rx] Ondansetron Odt [Zofran Odt] 1 tab PO Q8HR PRN #10 tab 10/04/21 [Rx] Sennosides [Senokot] 2 tab PO DAILY PRN #60 tablet 10/04/21 [Rx] Follow up Appointment(s)/Referral(s): Elliott Arnold DO [Doctor of Osteopathic Medicine] - 2 Weeks Activity/Diet/Wound Care/Special Instructions: Weightbearing as tolerated with a walker. CPM 5-6h daily as tolerated. Leave dressing intact. Dressing may be removed by home care nurse or by patient in 7 days. Then change dressing twice daily until follow up. May shower with initial dressing intact and after removal. If dressing become saturated, please remove. Recommend use of compression stockings daily until follow up to help prevent swelling and blood clots. May remove at night before sleeping. Please take aspirin 325mg twice daily for 30 days to prevent blood clots. Please follow up with [facility] and call with any questions or concerns, . Discharge Disposition: HOME WITH HOME HEALTH SERVICES
[2021-10-05] MEDS: ASPIRIN 325 MG TAB PO SCH (08:37)
[2021-10-05] MEDS: ISOSORBIDE MONONITRATE ER 60 MG TAB.ER.24H PO SCH (08:38)
--- NOTE | 2021-10-05 08:45 | P.PN ---
Subjective Progress Note Date: 10/05/21 Hospital course: Patient is a very pleasant 71-year-old female with a past medical history of hypertension, insulin-dependent diabetes mellitus, GERD, and SVT. She is currently admitted under orthopedic surgery team status post right total knee arthroplasty completed by Dr. Arnold on 10/04/21. Patient is currently postoperative day one and is doing well. Patient has been ambulating to and from restroom with walker and reports postoperative pain is currently managed by current pain medication regimen being provided. Patient tolerating oral intake and denies having any postoperative nausea or vomiting. Postoperative dressing in place and is clean dry and intact with no signs of bleeding or drainage. Morning labs reviewed and stable, postoperative hemoglobin 11.0. Patient is being discharged by orthopedic surgery team and is also medically cleared for discharge home with family at this time. Physical exam: Vital signs reviewed and stable. General: Nontoxic, no distress and appears stated age. Derm: Skin warm and dry, normal coloration for ethnicity. Head: Atraumatic, normocephalic and symmetric. Eyes: EOMs intact, no lid lag, and anicteric sclera Mouth: no lip lesions, mucus membranes moist Cardiovascular: regular rate and rhythm with normal S1S2, systolic murmur, positive posterior tibial pulses bilaterally, and cap refill < 2 seconds. Lungs: Respirations even, regular, and unlabored on room air. Lungs CTA bilaterally, no rhonchi, no rales, no wheezing, and no accessory muscle usage. Abdominal: soft, nontender to palpation, no guarding, no appreciable organomegaly Ext: ROM intact. No gross muscle atrophy, no edema, no contractures Neuro: Speech clear, face symmetrical and CN II-XII grossly intact with no noted focal neuro deficits Psych: Alert and oriented to person, place, time, and situation. Appropriate and pleasant affect. Assessment and Plan of Care: Acute postoperative blood loss anemia -Hemoglobin 11.0, expected finding and stable. Status post right total knee arthroplasty completed by Dr. Arnold on 10/04/21 -Management per primary admitting orthopedic surgery team including DVT prophylaxis, weightbearing, pain management, and PT/OT. -Patient currently on DVT prophylaxis with aspirin 325 mg twice a day. Hypertension -Monitor vital signs and continue daily medication regimen with lisinopril, Imdur, atenolol, and amlodipine. Insulin-dependent diabetes mellitus type 2 -Continue daily medication regimen with NovoLog 6 units 3 times daily with meals and monitor blood glucose levels closely. History of SVT -Continue daily medication regimen with atenolol 50 mg each morning. Thank you for allowing us to participate in the care of this pleasant patient. Do not hesitate to contact us with questions. Someone can be reached from the [facility] hospitalist group all hours of the day at [phone] or via [employer]. Phill Gallego NP rendered care for this patient independently, reviewed the findings and plan as documented in the note above. I did not physically speak with or examine the patient on this date. Objective - Vital Signs Vital signs: Vital Signs Temp 97.7 F 10/05/21 07:30 Pulse 56 L 10/05/21 07:30 Resp 16 10/05/21 07:30 BP 121/60 10/05/21 07:30 Pulse Ox 97 10/05/21 07:30 FiO2 Intake & Output 10/04/21 10/05/21 10/05/21 18:59 06:59 18:59 Intake Total 1251 880 Output Total 25 Balance 1226 880 Weight 73.4 kg Intake: IV 1251 Intake, IV Titration 880 Amount Sodium Chloride 0.9% 1, 780 000 ml @ 65 mls/hr IV . [id number] TOÑO Rx#:[id number] ceFAZolin 2 gm In Sodium 100 Chloride 0.9% 50 ml @ 100 mls/hr IVPB Q8H TOÑO Rx#: [id number] Output: Estimated Blood Loss 25 Other: # Voids 0 5 # Bowel Movements 0 - Labs CBC & Chem 7: 10/05/21 04:34 Labs: Abnormal Lab Results - Last 24 Hours (Table) 10/04/21 10/04/21 10/04/21 Range/Units 11:37 16:00 16:29 POC Glucose (mg/dL) 132 H 129 H 139 H (75-99) mg/dL 10/04/21 10/04/21 10/05/21 Range/Units 19:43 21:59 06:55 POC Glucose (mg/dL) 335 H 220 H 102 H (75-99) mg/dL
[2021-10-05] MEDS ORDERED: atenoloL 50 MG TAB PO SCH (09:00)
[2021-10-05] MEDS ORDERED: lisinopriL 20 MG TAB PO SCH (09:00)
[2021-10-05] MEDS ORDERED: amLODIPine 10 MG TAB PO SCH (09:00)
[2021-10-05 09:19] LABS: Basophils # (A) 0.03 X 10*3/uL (0.00-0.10); Basophils % (A) 0.3 %; Eosinophils # (A) 0.01 X 10*3/uL (0.04-0.35); Eosinophils % (A) 0.1 %; HCT 33.3 % (37.2-46.3); Immature Grans, Automated 0.5 %; Lymphocytes # (A) 2.41 X 10*3/uL (0.90-5.00); Lymphocytes % (A) 22.5 %; MCH 29.3 pg (27.0-32.0); MCV 88.8 fL (80.0-97.0); Mean Platelet Volume 11.7 fL (9.5-12.2); Monocytes # (A) 1.05 X 10*3/uL (0.20-1.00); Monocytes % (A) 9.8 %; NRBC Per 100 WBC 0 /100 WBCS (0.0-0.0); Neutrophils # (A) 7.18 X 10*3/uL (1.80-7.70); Neutrophils % (A) 66.8 %; Platelet Count 196 X 10*3/uL (140-440); RBC 3.75 X 10*6/uL (4.10-5.20); RDW 13.3 % (11.5-14.5); WBC 10.73 X 10*3/uL (4.50-10.00)
== END 2021-10-05 12:11 | disposition home health service (06) ==
LOC: OR 10:39 → 4SSUR 14:27 → OR 10-05 12:11
PROVIDERS: ATTEND Orthopaedic Surgery
DX: M17.11 Unilateral primary osteoarthritis, right knee (principal); D62 Acute posthemorrhagic anemia; E11.9 Type 2 diabetes mellitus without complications; E78.5 Hyperlipidemia, unspecified; G89.18 Other acute postprocedural pain; I10 Essential (primary) hypertension; I25.10 Atherosclerotic heart disease of native coronary artery without angina pectoris; K21.9 Gastro-esophageal reflux disease without esophagitis; Z79.4 Long term (current) use of insulin; Z79.82 Long term (current) use of aspirin; Z79.899 Other long term (current) drug therapy; Z82.49 Family history of ischemic heart disease and other diseases of the circulatory system; Z83.3 Family history of diabetes mellitus; Z87.440 Personal history of urinary (tract) infections; Z88.0 Allergy status to penicillin; Z91.040 Latex allergy status
CPT/HCPCS: 27447; 97161; 64999; 64448; 76942; 85025; 88300; 73560; C1713; C1776; J2250; J1100; J0690 ×3; J2405; J3010; J2795 ×2; J2704; J1170; 86850; 86870; 86880; 86900; 86901